=== PATIENT | female | born 1955 | race Two or more races ===

== ENCOUNTER 2017-11-11 17:34 | Emergency (ER) | payer MEDICARE, MEDICAID ==
[~2017-11-11] VITALS: Ht 149.9 cm; Wt 81.6 kg
[~2017-11-11 17:34] MED LIST: ACULAR; ASP325 PO; AZIT-1 PO; AZIT500T47 PO; CEFU250 PO; CHOLESTEROL MED; CODE118S5 PO; DIA5 PO; ENAL20TA99 PO; FERR55TA2 PO; GAB300 PO; HYDR-4309 PO; IPRA3AMP37 IH; LEVO25TA61 PO; LEVO750T44 PO; LOR5/325 PO; MET50 PO; MET500 PO; MOM PO; MORS15 PO; MULT-820 PO; NO ROUTINE MEDS; OMEP40CA48 PO; OXYC-868 PO; OXYGEN INH; PER PO; PRAV20TA65 PO; PRE20 PO; PRED20TA6 PO; PROM-110 PO; [UNRECOGNIZED DRUG - OTHER]
[2017-11-11] MEDS ORDERED: NS(*) 0.9% 1000 ML BAG 1,000 ML IV ONE (18:01)
--- NOTE | 2017-11-11 18:01 | ER Report ---
History and Physical Time Seen By MD: 17:50 Hx. of Stated Complaint: PATIENT REPORTS CHRONIC BACK PAIN. SHE HAS HAD PROBLEMS WITH HER BACK SINCE 1992 HPI/ROS CHIEF COMPLAINT: Back pain HISTORY OF PRESENT ILLNESS: 62-year-old female patient presents to emergency room with complaint of back pain. Patient states that she is not been feeling well for 3 weeks. States her back hurting. She denies any injury to her back. She denies any heavy lifting. She states that she is not taking any medication for this. She denies having any nausea, vomiting or diarrhea. Patient states she 's been feeling very thirsty, very dry. She states that for the last 3 days she is also been having generalized body aches. She states that she has taken a muscle relaxer without any improvement. She states she's been having neck pain and headache because of this. She states she also has had a sore throat which started today. REVIEW OF SYSTEMS: Respiratory: No cough, no dyspnea. Cardiovascular: No chest pain, no palpitations. Gastrointestinal: No vomiting, no abdominal pain. Musculoskeletal: As noted above Allergies: Coded Allergies: tramadol (Verified Adverse Reaction, Unknown, 01/21/17) Home Meds Active Scripts Hydrocodone Bit/Acetaminophen (HYDROCODON-ACETAMINOPHEN 5-325) 1 Each Tablet, 1 EACH PO Q4-6H Y for PAIN, #12 TAB Prov:EPI JEAN [facility] 11/11/17 Levofloxacin 500 Mg Tab (LEVAQUIN 500 MG TAB) 500 Mg Tablet, 500 MG PO DAILY for 7 Days, #7 TAB Prov:EPI JEAN [facility] 11/11/17 Reported Medications Omeprazole (OMEPRAZOLE) 40 Mg Capsule.dr, 40 MG PO QDAY, CAP 01/21/17 Pravastatin Sodium (PRAVACHOL) 20 Mg Tablet, 20 MG PO QDAY, TAB 01/21/17 Levothyroxine Sodium (LEVOTHYROXINE SODIUM) 25 Mcg Tablet, 25 MCG PO QDAY 04/13/16 Oxygen (Oxygen) 2 L Inha, 1 L INH PRN, 0 Refills wears at night 12/13/10 Metformin Hcl (Glucophage) 500 Mg Tab, 1000 MG PO BIDBS, 0 Refills 12/13/10 Gabapentin (Neurontin) 300 Mg Cap, 600 MG PO QID, 0 Refills 12/13/10 Metoprolol Tartrate (Lopressor (Or Equiv)) 50 Mg Tab, 50 MG PO BID, #60 TAB 0 Refills 12/13/10 Discontinued Scripts Promethazine Hcl (PROMETHAZINE HCL) 25 Mg Tablet, 25 MG PO Q4H Y for NAUSEA/ VOMITING, #12 TAB Prov:BRISA PINEDA DO 04/13/16 Past Medical/Surgical History Patient has a past medical history of migraines, hypertension, hyperlipidemia, asthma, hiatal hernia, urinary urgency, frequency, chronic back pain, arthritis , diabetes, hypothyroidism. Patient has a surgical history of back surgery 5, tubal ligation, partial hysterectomy. Patient has a family medical history of cancer, CAD, stroke, diabetes. Reviewed Nurses Notes: Yes Hx Smoking: No Smoking Status: Never Smoker Exposure to Second Hand Smoke?: Yes (childhood) Hx Substance Use Disorder: No Hx Alcohol Use: No Constitutional Vital Sign - Last 24 Hours 11/11/17 11/11/17 11/11/17 11/11/17 17:38 17:40 17:49 18:00 Temp 98.2 Pulse 94 91 Resp 20 B/P (MAP) 125/71 125/71 (89) 146/69 (94) Pulse Ox 88 O2 Delivery Room Air 11/11/17 11/11/17 11/11/17 11/11/17 18:19 18:30 18:34 18:50 Pulse 83 82 B/P (MAP) 143/74 (97) 152/71 (98) Pulse Ox 87 86 11/11/17 11/11/17 11/11/17 11/11/17 19:00 19:19 19:24 19:30 Pulse 69 B/P (MAP) 165/83 (110) 182/99 (126) Pulse Ox 83 98 Intake and Output 11/11/17 11/11/17 11/12/17 15:00 23:00 07:00 Intake Total 1000 ml Balance 1000 ml Physical Exam General Appearance: The patient is alert, has no immediate need for airway protection and no current signs of toxicity. ENT: Tympanic membranes are pearly-yeboah, auditory canals are patent, mucous membranes are dry. Respiratory: Chest is non tender, lungs are clear to auscultation. Cardiac: regular rate and rhythm Gastrointestinal: Abdomen is distended and diffusely tender, no masses, bowel sounds normal. Musculoskeletal: Neck: Neck is supple and non tender. Extremities have full range of motion and are non tender. Skin: No rashes or lesions. DIFFERENTIAL DIAGNOSIS: After history and physical exam differential diagnosis was considered for acute exacerbation of chronic back pain, muscle spasms, gastroenteritis, influenza. Medical Decision Making Data Points Result Diagram: 11/11/17181311/11/171813 Laboratory Hematology Test 11/11/17 18:00 11/11/17 18:14 Urine Color Yellow Urine Clarity Cloudy Urine pH 5.0 pH (4.8-9.5) Urine Specific Heron 1.028 Urine Protein 30 mg/dL (NEGATIVE) Urine Glucose (UA) Negative mg/dL (NEGATIVE) Urine Ketones Negative mg/dL (NEGATIVE) Urine Blood Negative (NEGATIVE) Urine Nitrite Positive (NEGATIVE) Urine Bilirubin Negative (NEGATIVE) Urine Urobilinogen Negative mg/dL (0.2-1.9) Urine Leukocyte Esterase Large (NEGATIVE) Urine RBC 2 /HPF (0-2/HPF) Urine WBC 42 /HPF (0-5/HPF) Urine Squamous Epithelial Cells Many /LPF (</=FEW) Urine Transitional Epithelial Cells Many /LPF (NONE-FEW) Urine Bacteria Few /HPF (NONE-FEW) Urine Hyaline Casts Few /LPF (NONE-FEW) Urine Mucus Few /HPF (NONE-FEW) Red Blood Count 5.37 M/uL (4.17-5.56) Mean Corpuscular Volume 82.9 fL (80.0-96.0) Mean Corpuscular Hemoglobin 27.4 pg (26.0-33.0) Mean Corpuscular Hemoglobin Concent 33.0 g/dL (32.0-36.0) Red Cell Distribution Width 15.1 % (11.5-14.5) Mean Platelet Volume 8.2 fL (7.2-11.1) Neutrophils (%) (Auto) 65.3 % (39.4-72.5) Lymphocytes (%) (Auto) 28.0 % (17.6-49.6) Monocytes (%) (Auto) 4.0 % (4.1-12.4) Eosinophils (%) (Auto) 2.2 % (0.4-6.7) Basophils (%) (Auto) 0.5 % (0.3-1.4) Nucleated RBC Relative Count (auto) 0.0 /100WBC Neutrophils # (Auto) 5.4 K/uL (2.0-7.4) Lymphocytes # (Auto) 2.3 K/uL (1.3-3.6) Monocytes # (Auto) 0.3 K/uL (0.3-1.0) Eosinophils # (Auto) 0.2 K/uL (0.0-0.5) Basophils # (Auto) 0.0 K/uL (0.0-0.1) Nucleated RBC Absolute Count (auto) 0.00 K/uL Sodium Level 139 mmol/L (137-145) Potassium Level 3.4 mmol/L (3.5-5.0) Chloride Level 100 mmol/L (98-107) Carbon Dioxide Level 29 mmol/L (22-31) Blood Urea Nitrogen 13 mg/dl (7-18) Creatinine 0.60 mg/dl (0.52-1.04) Glomerular Filtration Rate Calc > 60.0 Random Glucose 133 mg/dl (75-110) Calcium Level 9.2 mg/dl (8.4-10.2) Total Bilirubin 1.1 mg/dl (0.2-1.3) Aspartate Amino Transf (AST/SGOT) 53 U/L (0-35) Alanine Aminotransferase (ALT/SGPT) 56 U/L (0-56) Alkaline Phosphatase 134 U/L (0-126) C-Reactive Protein 1.9 mg/dl (<1.0) Total Protein 7.6 gm/dl (6.3-8.2) Albumin 4.1 g/dl (3.5-5.0) Amylase Level 70 U/L (0-110) Lipase 16 U/L (23-300) Influenza Type A Antigen Negative (NEGATIVE) Influenza Type B Antigen Negative (NEGATIVE) Chemistry Test 11/11/17 18:00 11/11/17 18:14 Urine Color Yellow Urine Clarity Cloudy Urine pH 5.0 pH (4.8-9.5) Urine Specific Heron 1.028 Urine Protein 30 mg/dL (NEGATIVE) Urine Glucose (UA) Negative mg/dL (NEGATIVE) Urine Ketones Negative mg/dL (NEGATIVE) Urine Blood Negative (NEGATIVE) Urine Nitrite Positive (NEGATIVE) Urine Bilirubin Negative (NEGATIVE) Urine Urobilinogen Negative mg/dL (0.2-1.9) Urine Leukocyte Esterase Large (NEGATIVE) Urine RBC 2 /HPF (0-2/HPF) Urine WBC 42 /HPF (0-5/HPF) Urine Squamous Epithelial Cells Many /LPF (</=FEW) Urine Transitional Epithelial Cells Many /LPF (NONE-FEW) Urine Bacteria Few /HPF (NONE-FEW) Urine Hyaline Casts Few /LPF (NONE-FEW) Urine Mucus Few /HPF (NONE-FEW) White Blood Count 8.3 k/uL (4.5-11.0) Red Blood Count 5.37 M/uL (4.17-5.56) Hemoglobin 14.7 g/dL (12.0-16.0) Hematocrit 44.5 % (34.0-47.0) Mean Corpuscular Volume 82.9 fL (80.0-96.0) Mean Corpuscular Hemoglobin 27.4 pg (26.0-33.0) Mean Corpuscular Hemoglobin Concent 33.0 g/dL (32.0-36.0) Red Cell Distribution Width 15.1 % (11.5-14.5) Platelet Count 220 K/uL (150-450) Mean Platelet Volume 8.2 fL (7.2-11.1) Neutrophils (%) (Auto) 65.3 % (39.4-72.5) Lymphocytes (%) (Auto) 28.0 % (17.6-49.6) Monocytes (%) (Auto) 4.0 % (4.1-12.4) Eosinophils (%) (Auto) 2.2 % (0.4-6.7) Basophils (%) (Auto) 0.5 % (0.3-1.4) Nucleated RBC Relative Count (auto) 0.0 /100WBC Neutrophils # (Auto) 5.4 K/uL (2.0-7.4) Lymphocytes # (Auto) 2.3 K/uL (1.3-3.6) Monocytes # (Auto) 0.3 K/uL (0.3-1.0) Eosinophils # (Auto) 0.2 K/uL (0.0-0.5) Basophils # (Auto) 0.0 K/uL (0.0-0.1) Nucleated RBC Absolute Count (auto) 0.00 K/uL Glomerular Filtration Rate Calc > 60.0 Calcium Level 9.2 mg/dl (8.4-10.2) Total Bilirubin 1.1 mg/dl (0.2-1.3) Aspartate Amino Transf (AST/SGOT) 53 U/L (0-35) Alanine Aminotransferase (ALT/SGPT) 56 U/L (0-56) Alkaline Phosphatase 134 U/L (0-126) C-Reactive Protein 1.9 mg/dl (<1.0) Total Protein 7.6 gm/dl (6.3-8.2) Albumin 4.1 g/dl (3.5-5.0) Amylase Level 70 U/L (0-110) Lipase 16 U/L (23-300) Influenza Type A Antigen Negative (NEGATIVE) Influenza Type B Antigen Negative (NEGATIVE) Urinalysis Test 11/11/17 18:00 Urine Color Yellow Urine Clarity Cloudy Urine pH 5.0 pH (4.8-9.5) Urine Specific Heron 1.028 Urine Protein 30 mg/dL (NEGATIVE) Urine Glucose (UA) Negative mg/dL (NEGATIVE) Urine Ketones Negative mg/dL (NEGATIVE) Urine Blood Negative (NEGATIVE) Urine Nitrite Positive (NEGATIVE) Urine Bilirubin Negative (NEGATIVE) Urine Urobilinogen Negative mg/dL (0.2-1.9) Urine Leukocyte Esterase Large (NEGATIVE) Urine RBC 2 /HPF (0-2/HPF) Urine WBC 42 /HPF (0-5/HPF) Urine Squamous Epithelial Cells Many /LPF (</=FEW) Urine Transitional Epithelial Cells Many /LPF (NONE-FEW) Urine Bacteria Few /HPF (NONE-FEW) Urine Hyaline Casts Few /LPF (NONE-FEW) Urine Mucus Few /HPF (NONE-FEW) EKG/Imaging Imaging ACUTE ABDOMEN SERIES 3 VIEW INDICATION: ABD PAIN COMPARISON: None available FINDINGS: Heart size within normal limits. There is left lower lobe atelectasis versus infiltrate present with possible small pleural effusion Abdominal series demonstrate nonobstructive bowel gas pattern. Multiple surgical clips are noted within the left upper abdomen. Thoracosacral fusion changes are present IMPRESSION: 1. Left lower lobe atelectasis versus infiltrate with possible small pleural effusion 2. Nonobstructive bowel gas pattern Report Dictated By: Miguel Angel Oliveros at 11/11/2017 7:10 PM Report E-Signed By: Miguel Angel Oliveros at 11/11/2017 7:15 PM ED Course/Re-evaluation ED Course Patient was admitted to an exam room, history and physical were obtained. Differential diagnoses were considered. On examination patient had tenderness to the abdomen, neck tightness. A CBC, CMP, influenza screen, urinalysis, acute abdominal x-rays were done. Patient had a normal white count, CMP was unremarkable, in foot screen was negative. Urinalysis showed a urinary tract infection that was positive for nitrites as well as moderate leukocyte esterase. The patient had 42 white cells per high-power field. Acute abdominal x -ray was done which showed atelectasis or possible infiltrate in the left lower lobe. I discussed findings with patient. We will go ahead and culture her urine. We also given treat her for pneumonia. We will treat her with an antibiotic is going to cover both the respiratory tract as well as urinary tract. We'll also give her limited supply of pain medications I believe that the urinary tract infection pneumonia has caused a flareup of her chronic back pain. Patient verbalized understanding and agreement with plan. Decision to Disposition Date: Nov 11, 2017 Decision to Disposition Time: 19:34 Depart Departure Latest Vital Signs Vital Signs Date Time Temp Pulse Resp B/P (MAP) Pulse Ox O2 Delivery O2 Flow Rate FiO2 11/11/17 19:30 182/99 (126) 11/11/17 19:24 69 98 11/11/17 17:38 98.2 20 Room Air Impression: Primary Impression: UTI (urinary tract infection) Additional Impressions: Low back pain Pneumonia Condition: Improved Disposition: HOME OR SELF-CARE Referrals: ROSALINO GOOD PA-C (PCP) New Scripts Hydrocodone Bit/Acetaminophen (HYDROCODON-ACETAMINOPHEN 5-325) 1 Each Tablet 1 EACH PO Q4-6H Y for PAIN, #12 TAB Prov: EPI JEAN 11/11/17 Levofloxacin 500 Mg Tab (LEVAQUIN 500 MG TAB) 500 Mg Tablet 500 MG PO DAILY for 7 Days, #7 TAB Prov: EPI JEAN 11/11/17 Patient Instructions: Acute Low Back Pain (ED), Urinary Tract Infection in Women (ED) Additional Instructions: Limit activity by pain. Increase fluid intake. Get plenty of rest. Follow up with Corine Good on Thursday or early next week. Return to the ER with any worsening of your condition. Problem Qualifiers Primary Impression: UTI (urinary tract infection) Urinary tract infection type: acute cystitis Hematuria presence: without hematuria Qualified Codes: N30.00 - Acute cystitis without hematuria Additional Impressions: Low back pain Chronicity: acute Back pain laterality: midline Sciatica presence: without sciatica Qualified Codes: M54.5 - Low back pain Pneumonia Pneumonia type: due to unspecified organism Laterality: left Lung location : lower lobe of lung Qualified Codes: J18.1 - Lobar pneumonia, unspecified organism EPI JEAN Nov 11, 2017 18:01
[2017-11-11] MEDS ORDERED: ORPHENADRINE 60MG/2ML INJ IVP ONE (18:05)
[2017-11-11 18:31] LABS: PLATELET COUNT, AUTOMATED 220 K/uL (150-450)
--- NOTE | 2017-11-11 19:20 | RADIOLOGY IMAGING REPORT ---
FACILITY: [facility] - [place] PATIENT NAME: Josselin Mcmillan : 1955 MR: [id number] V: [id number] EXAM DATE: ORDERING PHYSICIAN: EPI JEAN TECHNOLOGIST: Location: [facility] Patient: Josselin Mcmillan : 1955 Visit/Account:[id number] Date of Sevice: 11/11/2017 ACUTE ABDOMEN SERIES 3 VIEW INDICATION: ABD PAIN COMPARISON: None available FINDINGS: Heart size within normal limits. There is left lower lobe atelectasis versus infiltrate present with possible small pleural effusion Abdominal series demonstrate nonobstructive bowel gas pattern. Multiple surgical clips are noted wit hin the left upper abdomen. Thoracosacral fusion changes are present IMPRESSION: 1. Left lower lobe atelectasis versus infiltrate with possible small pleural effusion 2. Nonobstructive bowel gas pattern Report Dictated By: Miguel Angel Oliveros at 11/11/2017 7:10 PM Report E-Signed By: Miguel Angel Oliveros at 11/11/2017 7:15 PM WSN:[id number]
[2017-11-11 19:30] VITALS: BP 182/99
[2017-11-11] MEDS ORDERED: HYDR-385 PO (19:33)
[2017-11-11] MEDS ORDERED: LEVO-85 PO (19:33)
== END 2017-11-11 19:45 | disposition home or self-care (01) ==
LOC: ER 18:10
DX: N30.00 Acute cystitis without hematuria (principal); M54.5 Low back pain; J18.1 Lobar pneumonia, unspecified organism
CPT/HCPCS: 74022; 81001; 82150; 83690; 85025; 86140; 87077; 87088; 87186; 87502; 96361; 96374; 99284; J2360; J7030; 82040; 82247; 82310; 82374; 82435; 82565; 82947; 84075; 84132; 84155; 84295; 84450; 84460; 84520

== ENCOUNTER → 2017-11-20 | Outpatient (CLI) | payer MEDICARE, MEDICAID ==
[~2017-11-20] MED LIST changes: +HYDR-385 PO; +LEVO-85 PO
--- NOTE | 2017-11-20 17:18 | RADIOLOGY IMAGING REPORT ---
FACILITY: [facility] [place] PATIENT NAME: Josselin Mcmillan : 1955 MR: [id number] V: [id number] EXAM DATE: ORDERING PHYSICIAN: ROSALINO GOOD TECHNOLOGIST: Location: [facility] - [place] Patient: Josselin Mcmillan : 1955 Visit/Account:[id number] Date of Sevice: 11/20/2017 2 VIEWS CHEST INDICATION: Chest congestion for one week. COMPARISON: 12/18/2015. FINDINGS: Cardiomediastinal silhouette and pulmonary vessels within normal limits. There is no focal infiltrate or lobar consolidation. There is no pneumothorax or pleural effusion. No nodule. Upper abdomen is unremarkable. No acute bony abnormality. Postsurgical change of the thoracal lumbar spine without sequelae. The neural stimulating wires are in place within the spinal canal region and unchanged. IMPRESSION: 1. No acute cardiopulmonary process. Report Dictated By: Romeo Flood at 11/20/2017 5:12 PM Report E-Signed By: Romeo Flood at 11/20/2017 5:13 PM WSN:[id number]
== END ==
LOC: RAD 16:46
PROVIDERS: ATTEND Physician Assistant
DX: J18.9 Pneumonia, unspecified organism (principal)
CPT/HCPCS: 71046

== ENCOUNTER 2017-12-01 21:49 | Emergency (ER) | payer MEDICARE, MEDICAID ==
[2017-12-01] MEDS ORDERED: ASPIRIN 81 MG CHEW PO ONE (22:10)
--- NOTE | 2017-12-01 22:10 | ER Report ---
History and Physical Time Seen By MD: 22:08 Hx. of Stated Complaint: PT REPORTS THAT SHE HAS BEEN SICK FOR ABOUT THREE WEEKS. HAS BEEN TO PCP SEVERAL TIMES. LAST SHE SAW THEM WAS LAST THURSDAY. TONIGHT SHE REPORTS CHEST PAIN THAT RADIATES INTO HER LEFT JAW AND SHOULDER. HPI/ROS CHIEF COMPLAINT: Chest pain HISTORY OF PRESENT ILLNESS: Agree with triage complaint, she reports she has been sick for approximately 3 weeks with cough chest discomfort and respiratory difficulty. She states is difficult to expel air. She denies history of asthma or COPD. She does not have any known infectious contacts. Possible fevers at home no vomiting or abdominal pain no other concerns or complaints today REVIEW OF SYSTEMS: Constitutional: No fever, no chills. Eyes: No discharge. ENT: No sore throat. Cardiovascular: No leg swelling Respiratory: Otherwise negative Gastrointestinal: No abdominal pain, no vomiting. Genitourinary: No hematuria. Musculoskeletal: No back pain. Skin: No rashes. Neurological: No headache. Allergies: Coded Allergies: tramadol (Verified Adverse Reaction, Unknown, 12/01/17) Home Meds Active Scripts Hydrocodone Bit/Acetaminophen (HYDROCODON-ACETAMINOPHEN 5-325) 1 Each Tablet, 1 EACH PO Q4-6H Y for PAIN, #12 TAB Prov:EPI JEAN 11/11/17 Reported Medications Omeprazole (OMEPRAZOLE) 40 Mg Capsule.dr, 40 MG PO QDAY, CAP 01/21/17 Pravastatin Sodium (PRAVACHOL) 20 Mg Tablet, 20 MG PO QDAY, TAB 01/21/17 Levothyroxine Sodium (LEVOTHYROXINE SODIUM) 25 Mcg Tablet, 25 MCG PO QDAY 04/13/16 Oxygen (Oxygen) 2 L Inha, 1 L INH PRN, 0 Refills wears at night 12/13/10 Metformin Hcl (Glucophage) 500 Mg Tab, 1000 MG PO BIDBS, 0 Refills 12/13/10 Gabapentin (Neurontin) 300 Mg Cap, 600 MG PO QID, 0 Refills 12/13/10 Metoprolol Tartrate (Lopressor (Or Equiv)) 50 Mg Tab, 50 MG PO BID, #60 TAB 0 Refills 12/13/10 Discontinued Scripts Levofloxacin 500 Mg Tab (LEVAQUIN 500 MG TAB) 500 Mg Tablet, 500 MG PO DAILY for 7 Days, #7 TAB Prov:EPI JEAN 11/11/17 Hx Smoking: No Smoking Status: Never Smoker Exposure to Second Hand Smoke?: Yes (childhood) Hx Substance Use Disorder: No Hx Alcohol Use: No Constitutional Vital Sign - Last 24 Hours 12/01/17 12/01/17 12/01/17 12/01/17 21:59 22:00 22:15 22:30 Temp 98.3 Pulse 103 104 99 Resp 20 22 B/P (MAP) 191/111 210/119 (149) Pulse Ox 92 93 90 95 O2 Delivery Room Air 12/01/17 12/01/17 12/01/17 12/01/17 22:45 23:00 23:05 23:05 Pulse 101 97 94 Resp 26 26 16 B/P (MAP) 190/102 (131) Pulse Ox 89 88 90 O2 Delivery Room Air Physical Exam General Appearance: The patient is alert, has no immediate need for airway protection and no signs of toxicity. No acute distress Eyes: Pupils equal and round no pallor or injection. ENT, Mouth: Mucous membranes are moist. Respiratory: There are no retractions, lungs are clear to auscultation. Long expiratory phase Cardiovascular: Regular rate and rhythm. No murmurs gallops or rubs Gastrointestinal: Abdomen is soft and non tender, no masses, bowel sounds normal. Neurological: Normal Skin: Warm and dry, no rashes. Musculoskeletal: Neck is supple non tender. Extremities are nontender, nonswollen and have full range of motion. No edema DIFFERENTIAL DIAGNOSIS: After history and physical exam differential diagnosis was considered for no signs of acute coronary syndrome suspect infectious process such as a viral bronchitis we'll perform chest workup including troponins and chest x-ray to exclude pneumonia Medical Decision Making Data Points Result Diagram: 12/01/17220912/01/172209 Laboratory Hematology Test 12/01/17 22:10 Red Blood Count 5.24 M/uL (4.17-5.56) Mean Corpuscular Volume 82.8 fL (80.0-96.0) Mean Corpuscular Hemoglobin 27.4 pg (26.0-33.0) Mean Corpuscular Hemoglobin Concent 33.1 g/dL (32.0-36.0) Red Cell Distribution Width 15.4 % (11.5-14.5) Mean Platelet Volume 8.2 fL (7.2-11.1) Neutrophils (%) (Auto) 68.8 % (39.4-72.5) Lymphocytes (%) (Auto) 24.3 % (17.6-49.6) Monocytes (%) (Auto) 4.4 % (4.1-12.4) Eosinophils (%) (Auto) 2.1 % (0.4-6.7) Basophils (%) (Auto) 0.4 % (0.3-1.4) Nucleated RBC Relative Count (auto) 0.1 /100WBC Neutrophils # (Auto) 5.0 K/uL (2.0-7.4) Lymphocytes # (Auto) 1.8 K/uL (1.3-3.6) Monocytes # (Auto) 0.3 K/uL (0.3-1.0) Eosinophils # (Auto) 0.2 K/uL (0.0-0.5) Basophils # (Auto) 0.0 K/uL (0.0-0.1) Nucleated RBC Absolute Count (auto) 0.00 K/uL Sodium Level 143 mmol/L (137-145) Potassium Level 4.0 mmol/L (3.5-5.0) Chloride Level 105 mmol/L (98-107) Carbon Dioxide Level 25 mmol/L (22-31) Blood Urea Nitrogen 18 mg/dl (7-18) Creatinine 0.60 mg/dl (0.52-1.04) Glomerular Filtration Rate Calc > 60.0 Random Glucose 185 mg/dl (75-110) Calcium Level 9.1 mg/dl (8.4-10.2) Total Bilirubin 0.6 mg/dl (0.2-1.3) Aspartate Amino Transf (AST/SGOT) 65 U/L (0-35) Alanine Aminotransferase (ALT/SGPT) 71 U/L (0-56) Alkaline Phosphatase 130 U/L (0-126) Troponin I < 0.012 ng/ml B-Type Natriuretic Peptide 55 pg/ml (0-100) Total Protein 7.3 gm/dl (6.3-8.2) Albumin 3.9 g/dl (3.5-5.0) Chemistry Test 12/01/17 22:10 White Blood Count 7.3 k/uL (4.5-11.0) Red Blood Count 5.24 M/uL (4.17-5.56) Hemoglobin 14.3 g/dL (12.0-16.0) Hematocrit 43.3 % (34.0-47.0) Mean Corpuscular Volume 82.8 fL (80.0-96.0) Mean Corpuscular Hemoglobin 27.4 pg (26.0-33.0) Mean Corpuscular Hemoglobin Concent 33.1 g/dL (32.0-36.0) Red Cell Distribution Width 15.4 % (11.5-14.5) Platelet Count 215 K/uL (150-450) Mean Platelet Volume 8.2 fL (7.2-11.1) Neutrophils (%) (Auto) 68.8 % (39.4-72.5) Lymphocytes (%) (Auto) 24.3 % (17.6-49.6) Monocytes (%) (Auto) 4.4 % (4.1-12.4) Eosinophils (%) (Auto) 2.1 % (0.4-6.7) Basophils (%) (Auto) 0.4 % (0.3-1.4) Nucleated RBC Relative Count (auto) 0.1 /100WBC Neutrophils # (Auto) 5.0 K/uL (2.0-7.4) Lymphocytes # (Auto) 1.8 K/uL (1.3-3.6) Monocytes # (Auto) 0.3 K/uL (0.3-1.0) Eosinophils # (Auto) 0.2 K/uL (0.0-0.5) Basophils # (Auto) 0.0 K/uL (0.0-0.1) Nucleated RBC Absolute Count (auto) 0.00 K/uL Glomerular Filtration Rate Calc > 60.0 Calcium Level 9.1 mg/dl (8.4-10.2) Total Bilirubin 0.6 mg/dl (0.2-1.3) Aspartate Amino Transf (AST/SGOT) 65 U/L (0-35) Alanine Aminotransferase (ALT/SGPT) 71 U/L (0-56) Alkaline Phosphatase 130 U/L (0-126) Troponin I < 0.012 ng/ml B-Type Natriuretic Peptide 55 pg/ml (0-100) Total Protein 7.3 gm/dl (6.3-8.2) Albumin 3.9 g/dl (3.5-5.0) EKG/Imaging EKG Interpretation An EKG was performed at 2219 on 12/01/2017. It demonstrated sinus tachycardia with a ventricular rate of 101 in the left anterior fascicular block normal [place] QRS and QTc intervals no ST or T-wave changes to suggest ischemia or infarction impression no ischemia ED Course/Re-evaluation ED Course Plan of care agree upon prior to orders placed 12/02/2017 12:21:15 am improved with ED therapy. Still some discomfort with coughing promethazine codeine syrup oral now Decision to Disposition Date: Dec 02, 2017 Decision to Disposition Time: 00:21 Depart Departure Latest Vital Signs Vital Signs Date Time Temp Pulse Resp B/P (MAP) Pulse Ox O2 Delivery O2 Flow Rate FiO2 12/01/17 23:05 94 16 12/01/17 23:05 90 Room Air 12/01/17 23:00 190/102 (131) 12/01/17 21:59 98.3 Impression: Primary Impression: Bronchitis Condition: Improved Disposition: HOME OR SELF-CARE Referrals: ROSALINO GOOD PA-C (PCP) New Scripts Guaifenesin/Codeine Phosphate (Codeine-Guaifen 10-100 mg/5 ml) 120 Ml Liquid 10 MG ASDIRECTED 2-4XD for 7 Days Prov: VALDEMAR HOFFMAN MD 12/02/17 Albuterol Sulfate 90 Mcg/Act (PROAIR HFA 90 MCG/ACT) 8.5 Gm Hfa.aer.ad 1-2 PUFF IH 3-4XD for wheezing, #2 INHALER Prov: VALDEMAR HOFFMAN MD 12/02/17 Prednisone (PREDNISONE) 20 Mg Tablet 20 MG PO DAILY for 5 Days, #5 TAB Prov: VALDEMAR HOFFMAN MD 12/02/17 Patient Instructions: Acute Bronchitis (ED) VALDEMAR HOFFMAN MD Dec 01, 2017 22:10
[2017-12-01 22:20] LABS: PLATELET COUNT, AUTOMATED 215 K/uL (150-450)
--- NOTE | 2017-12-01 22:54 | RADIOLOGY IMAGING REPORT ---
FACILITY: [facility] [place] PATIENT NAME: Josselin Mcmillan : 1955 MR: [id number] V: [id number] EXAM DATE: ORDERING PHYSICIAN: VALDEMAR HOFFMAN TECHNOLOGIST: Location: [facility] - [place] Patient: Josselin Mcmillan : 1955 Visit/Account:[id number] Date of Sevice: 12/01/2017 CHEST SINGLE AP HISTORY: Wheezing. Dyspnea. COMPARISON: 11/20/2017 FINDINGS: Cardiomediastinal contours: Normal Lungs and pleura: Normal Bones/soft tissues: Thoracolumbar fusion hardware. Spinal stimulator leads. Other findings: None significant IMPRESSION: 1. No acute cardiopulmonary disease. No change. Report Dictated By: Jonathon Kincaid MD at 12/01/2017 10:50 PM Report E-Signed By: Jonathon Kincaid MD at 12/01/2017 10:51 PM WSN:[id number]
[2017-12-01] MEDS ORDERED: ALBUTEROL/IPRATROPIUM 3 ML NEB NEB ONE (23:05)
[2017-12-01] MEDS ORDERED: IPRATROPIUM 0.5MG/2.5ML NEB NEB ONE (23:05)
[2017-12-01] MEDS ORDERED: methylPREDNIS SUCC 125 MG/2ML IVP ONE (23:05)
[2017-12-01] MEDS ORDERED: NS(*) 0.9% 1000 ML BAG 1,000 ML IV ONE (23:05)
--- NOTE | 2017-12-01 23:37 | EKG ---
FACILITY: [facility] [place] PATIENT NAME: JESSE COLEMAN : [id number] MR: [id number] V: [id number] EXAM DATE: ORDERING PHYSICIAN: VALDEMAR HOFFMAN TECHNOLOGIST: MASON Camilo Reason : HTN Blood Pressure : / mmHG Vent. Rate : 101 BPM Atrial Rate : 101 BPM P-R Int : 136 ms QRS Dur : 076 ms QT Int : 346 ms P-R-T Axes : 032 -50 037 degrees QTc Int : 448 ms Sinus tachycardia Left axis Abnormal ECG When compared with ECG of 16-APR-2014 07:22, No significant change was found Confirmed by YESIKA ZAMUDIO ([id number]) on 12/02/2017 3:57:56 PM Referred By: Confirmed By:YESIKA ZAMUDIO
[2017-12-02] MEDS ORDERED: PROMETH/COD SYRP 6.25-10MG/5ML PO ONE (00:20)
[2017-12-02 00:25] VITALS: BP 188/93
[2017-12-02] MEDS ORDERED: GUAI120L3 ASDIRECTED (00:26)
[2017-12-02] MEDS ORDERED: ALBU8.5H IH (00:26)
[2017-12-02] MEDS ORDERED: PRED20TA6 PO (00:26)
== END 2017-12-02 00:36 | disposition home or self-care (01) ==
LOC: ER 22:04
DX: J40 Bronchitis, not specified as acute or chronic (principal); R06.00 Dyspnea, unspecified
CPT/HCPCS: 71045; 83880; 84484; 85025; 93005; 94640; 96361; 96374; 99284; A9270; J2930; J7030; J7620; 82040; 82247; 82310; 82374; 82435; 82565; 82947; 84075; 84132; 84155; 84295; 84450; 84460; 84520

== ENCOUNTER 2018-02-12 14:30 | Outpatient (RCR) | payer MEDICARE, MEDICAID ==
--- NOTE | 2017-12-21 15:59 | PT INITIAL EVALUATION ---
MEDICAL DIAGNOSIS: L shoulder pain TREATMENT DIAGNOSIS: Same, L shoulder tendinitis, bursitis, myofascial pain DATE OF ONSET: 11/09/17 SUBJECTIVE: Josselin Mcmillan presents to PT for L shoulder pain that's flared from coughing from a respiratory illness 5-6 weeks ago. She's right-handed. Quick DASH 100% impairment. Josselin relates she needs help dressing, isn't doing household ADL's with L UE due to shoulder pain. L shoulder pain now disrupts sleep (about 3 hours of sleep per night). LBP disrupts sleep also, so Josselin would like to sleep better. Pain location is L anterior and lateral shoulder and described as ache, sharp pain, pins and needles to the hand, popping, refers pain to the neck and creates FAM's. Pain scale is 10 on a ten point pain scale. Pain is worse with movement, coughing and better with heat. REHAB PROBLEM LIST: Increased Pain Decreased ROM Decreased Strength Decreased Function Decreased ADL's Decreased Mobility PREVIOUS MEDICAL HISTORY: Four to five back surgeries, UTI, DM II, CPAP. OCCUPATION: Disabled. OBJECTIVE: Posture: Elevated and protracted L shoulder, head and neck midline. ROM: A/PROM L shoulder, in degrees: flexion 70/115, abduction 90/90, IR L thigh /30, ER at 60 deg. scaption 70/75. Fingertip to shoulder full on R, 4" away on L. Strength: L supraspinatus 4-/5, painful, infraspinatus and IR 4/5, painful. Palpation: Painful with light palpation all about the shoulder, worse at the biceps long head, lateral bursa, rotator cuff, LS tendons, infraspinatus, pec. major/minor, UT muscle bellies. Special Tests: Negative inferior drawer, drop arm, crank and scour, positive empty can and bicipital impingement tests. Mobility: Difficulty semi-recumbent to sit due to not able to load L UE. Gait: Normal scapulohumeral rhythm through available ROM. ASSESSMENT: Josselin Mcmillan presents wtih tendinitis, bursitis, shoulder pain, muscle and postural imbalance after weeks of coughing. She had less pain and reduced UT/LS muscle tone after e-stim and heat. She's started on HEP. Short Term Goals 4 weeks: Josselin sleeps without awakening due to L shoulder pain for 4 hours , drives with L hand high on the steering wheel. 8 weeks: Quick DASH 40 to 50% impairment, Josselin uses both arms to lift baskets of laundry, do dishes. Patient's Goals Reduce L shoulder pain by 50%. PLAN: Patient to be seen for Manual Therapy Strengthening/condition Ice/Heat Range of Motion Stretching Electrical Stim Home Exercise Program 2x/Week for 2 Months Thank you for this referral. If you have any questions, comments, or concerns about this report or plan, please contact me at . MTDD
[~2018-02-12 14:30] MED LIST changes: +ALBU8.5H IH; +GUAI120L3 ASDIRECTED
--- NOTE | 2018-03-09 16:00 | PT PLAN OF CARE ---
Physician: Damaris James PA-C Patient is being seen: 2x/week Therapist: Deana Modi, SH[place] Medical Diagnosis: L shoulder pain Treatment Diagnosis: Same, L shoulder tendinitis, bursitis, myofascial pain Date of Onset: 11/09/17 Date of Initial Evaluation: 12/21/17 Date patient was last seen: 02/12/18 Number of treatments: 8 Number of cancellations/No shows: 5 INTERVENTIONS: Shoulder ROM/stretching, E-stim, Heat, Manual Therapy Home Exercise Program GOALS: All not met: 4 weeks: Josselin sleeps without awakening due to L shoulder pain for 4 hours , drives with L hand high on the steering wheel. 8 weeks: Quick DASH 40 to 50% impairment, Josselin uses both arms to lift baskets of laundry, do dishes. PATIENT'S GOAL: Reduce L shoulder pain by 50%. Patient Compliance: Fair Prognosis: Good Reasons for discontinuing therapy: S: Josselin cancelled her last three appointments and hung up on our clinical coordinator (Boyd) when she called. Josselin then called, Boyd answered and Josselin hung up again. O: At Josselin's last visit, L shoulder joint mobilization reduced pain (/) and her L lower trapezius was weak. On 01/19, L shoulder AROM was improved to 125 deg. flexion, 90 deg. abd., 85 deg. ER at 70 deg. of abduction. A/P: Josselin has discharged herself from PT. I'll close her case. Thank you. MIRTA
== END 2018-02-12 18:00 | disposition home or self-care (01) ==
LOC: PT 14:30
PROVIDERS: ATTEND Physician Assistant Medical
DX: M25.512 Pain in left shoulder (principal); M65.812 Other synovitis and tenosynovitis, left shoulder; M75.52 Bursitis of left shoulder; M54.5 Low back pain; M79.1 Myalgia; R20.2 Paresthesia of skin
CPT/HCPCS: 97010; 97110; 97140; 97162; G0283